=== PATIENT | female | born 1945 | race Caucasian/White ===

== ENCOUNTER 2021-12-21 10:33 | Emergency (ER) | payer MEDICARE ==
[~2021-12-21] VITALS: Ht 139.7 cm; Wt 93.9 kg
--- NOTE | 2021-12-21 10:40 | NUR ---
BIBS C/O CHETS PAIN ON AN DOFF [id number]. PT STATED THAT THE PAIN RADIATES TO BOTH ARMS AND BACK AND AT TIME SSAYS SHE CANNOT HEAR WHAT PEOPLE ARE SAYING. PT STATED SHE HAS NOT CARDIAC HISTORY. ATTCHED TO MONITOR, BLOOD PRESSURE ELEVATED, MD AWARE. PT IS A&OX4. IV ESTBLIHASED L AC 20G. LABS DRAWN AND COLLECTED AT BEDSIDE. WARM BLANKET PROVIDED FOR COMFORT. AWAITING MD AGUILAR.
[2021-12-21] MEDS ORDERED: LORAZEPAM 0.5 MG TABLET ONE (10:58)
[2021-12-21] MEDS ORDERED: ASPIRIN 325 MG TABLET ONE (10:58)
[2021-12-21] MEDS ORDERED: LORAZEPAM 0.5 MG TABLET PO ONE (11:00)
[2021-12-21] MEDS ORDERED: ASPIRIN 325 MG TABLET PO ONE (11:00)
[2021-12-21 11:09] LABS: BASOPHILS % (AUTO) 0.4 % (0.0-2.0); EOSINOPHILS % (AUTO) 0.2 % (0.0-6.0); HEMATOCRIT 30 % (33-45); HEMOGLOBIN 10.5 g/dL (11.5-14.8); LYMPHOCYTES # (AUTO) 2.6 K/uL (0.8-4.8); LYMPHOCYTES % (AUTO) 25.6 % (20.0-44.0); MEAN CORPUSCULAR HGB CONC 35 g/dl (31.0-36.0); MEAN CORPUSCULAR VOLUME 87 fL (82-100); MONOCYTES # (AUTO) 0.8 K/uL (0.1-1.30); MONOCYTES % (AUTO) 7.7 % (2.0-12.0); NEUTROPHILS # (AUTO) 6.6 K/uL (1.8-8.9); NEUTROPHILS % (AUTO) 66.1 % (43.0-81.0); PLATELET COUNT (AUTO) 235 K/uL (150-450); RED BLOOD CELL COUNT(AUTO) 3.44 MIL/uL (4.0-5.2)
[2021-12-21 11:29] LABS: CALCIUM, SERUM 8.8 mg/dL (8.5-10.1); CARBON DIOXIDE 23 mmol/L (21-32); CHLORIDE 107 mmol/L (98-107); CREATININE 0.7 mg/dL (0.6-1.3); GLUCOSE 107 mg/dL (74-106); POTASSIUM 3.5 mmol/L (3.5-5.1); SODIUM SERUM 138 mmol/L (136-145); UREA NITROGEN, BLOOD 25 mg/dL (7-18)
[2021-12-21 11:35] LABS: ALANINE AMINOTRANSFERASE 70 U/L (12-78); ALKALINE PHOSPHATASE 129 U/L (46-116); ASPARTATE AMINOTRANSFERASE 20 U/L (15-37); BILIRUBIN,DIRECT 0.1 mg/dL (0.0-0.2); BILIRUBIN,TOTAL 0.3 mg/dL (0.2-1.0); TOTAL PROTEIN, SERUM 6.6 g/dL (6.4-8.2)
--- NOTE | 2021-12-21 11:50 | NUR ---
RE-EVAL BY DR DAVILA,WANTS REPEAT TROP HS IN 1 HR
[2021-12-21] MEDS ORDERED: PROP20TA19 PO (12:37)
[2021-12-21] MEDS ORDERED: DILT180C87 PO (12:37)
[2021-12-21] MEDS ORDERED: ASPI-1420 PO (12:37)
[2021-12-21] MEDS ORDERED: DICL75TA5 PO (12:37)
[2021-12-21] MEDS ORDERED: FERR325T28 PO (12:37)
[2021-12-21] MEDS ORDERED: PRAM0.253 PO (12:38)
[2021-12-21 13:55] LABS: BILIRUBIN,URINE SMALL (NEGATIVE); COLOR,URINE YELLOW (YELLOW); LEUKOCYTE ESTERASE ,URINE NEGATIVE (NEGATIVE); NITRITE, URINE NEGATIVE (NEGATIVE); PROTEIN,URINE NEGATIVE (NEGATIVE); UGLUCOSE NEGATIVE (NEGATIVE); UROBILINOGEN,URINE 0.2 EU/dL (0.2)
--- NOTE | 2021-12-21 14:38 | NUR ---
IV removed. Catheter intact and site benign. Pressure and 4x4 applied to site. No bleeding noted.Patient discharged to home in stable condition. Written and verbal after care instructions given. Patient verbalizes understanding of instruction.
[2021-12-21 14:39] VITALS: BP 160/87
== END 2021-12-21 14:39 | disposition home or self-care (01) ==
LOC: ER 10:37
DX: F41.9 Anxiety disorder, unspecified (principal); R07.89 Other chest pain; I10 Essential (primary) hypertension; Z60.2 Problems related to living alone; Z79.899 Other long term (current) drug therapy
CPT/HCPCS: 36415; 71045-TC; 80048-TC; 80076-TC; 84484-TC; 85025-TC

== ENCOUNTER 2023-02-22 08:01 | Emergency (ER) | payer MEDICARE, OTHER ==
[~2023-02-22] VITALS: Ht 157.5 cm; Wt 72.6 kg
[~2023-02-22 08:01] MED LIST: ASPI-1420 PO; DICL75TA5 PO; DILT180C87 PO; FERR325T28 PO; PRAM0.253 PO; PROP20TA19 PO
--- NOTE | 2023-02-22 08:10 | NUR ---
BIB [facility] FROM HOME,CHEST PAIN SINCE YESTERDAY MORNING RATES TO HER LEFT ARM AND THROAT, ASA 324 MG AND NTG X 3 GIVEN BUT PROVIDED NO RELIEF. PT ATTACHED TO MONITOR VITALS ARE WITHIN NORMAL LIMITS, PER EMS HER SYSTOLIC WAS 200 UPON ARRIVAL AT HER HOUSE. PT HAS HX OF HYPERTENSION AND STATED SHE WAS SEEN LAST YEAR FOR CHEST PAIN AND WAS DISCHARGES. WARM BLANKET PROVIDED FOR COMFORT. AWAITING MD ORDERS.
--- NOTE | 2023-02-22 08:20 | NUR ---
IV ON L AC 18 PLACED BY EMS. SALINE LOCK APPLIED
[2023-02-22 08:27] LABS: BASOPHILS # (AUTO) 0.1 K/uL (0.0-0.2); BASOPHILS % (AUTO) 0.5 % (0.0-2.0); EOSINOPHILS % (AUTO) 0.1 % (0.0-6.0); HEMATOCRIT 37 % (33-45); HEMOGLOBIN 12.4 g/dL (11.5-14.8); LYMPHOCYTES # (AUTO) 1.9 K/uL (0.8-4.8); LYMPHOCYTES % (AUTO) 16.7 % (20.0-44.0); MEAN CORPUSCULAR HGB CONC 34 g/dl (31.0-36.0); MEAN CORPUSCULAR VOLUME 83 fL (82-100); MONOCYTES # (AUTO) 0.6 K/uL (0.1-1.30); MONOCYTES % (AUTO) 5.6 % (2.0-12.0); NEUTROPHILS # (AUTO) 8.9 K/uL (1.8-8.9); NEUTROPHILS % (AUTO) 77.1 % (43.0-81.0); PLATELET COUNT (AUTO) 217 K/uL (150-450); WHITE BLOOD COUNT (AUTO) 11.5 K/uL (4.3-11.0)
[2023-02-22] MEDS ORDERED: MORPHINE SULFATE INJ 2 MG/ML DISP.SYRIN IV ONE ×2 (08:30→12:00)
[2023-02-22] MEDS ORDERED: ONDANSETRON HCL/PF 4 MG/2 ML VIAL IVP ONE (08:30)
[2023-02-22] MEDS ORDERED: ONDANSETRON HCL/PF 4 MG/2 ML VIAL ONE (08:35)
[2023-02-22] MEDS ORDERED: MORPHINE SULFATE INJ 4 MG/ML DISP.SYRIN ONE ×2 (08:36→11:49)
[2023-02-22 08:43] LABS: CALCIUM, SERUM 9.5 mg/dL (8.5-10.1); CARBON DIOXIDE 20 mmol/L (21-32); CHLORIDE 103 mmol/L (98-107); CREATININE 0.8 mg/dL (0.6-1.3); GLUCOSE 152 mg/dL (74-106); POTASSIUM 3.3 mmol/L (3.5-5.1); SODIUM SERUM 137 mmol/L (136-145); UREA NITROGEN, BLOOD 15 mg/dL (7-18)
--- NOTE | 2023-02-22 09:03 | NUR ---
DR ROCA CALLED AND SPOKE WITH DR PHILIP
--- NOTE | 2023-02-22 09:08 | NUR ---
DR LEE CALLED AND WANTS PATIENT TX TO ER, DR BRAGG CALLED AT [facility] ER
--- NOTE | 2023-02-22 09:35 | NUR ---
NURSING FINE CRAFT ARTIST CALLED FOR TX
--- NOTE | 2023-02-22 09:37 | NUR ---
CALLED [facility] FOR TRANSPORT NO ALS UNITS AVAILABLE
--- NOTE | 2023-02-22 09:38 | NUR ---
CALLED [facility] FOR TRANSPORT ETA 90-120 MINS.
--- NOTE | 2023-02-22 09:44 | NUR ---
CALLED [facility] [phone] ETA 1400
--- NOTE | 2023-02-22 09:48 | NUR ---
CALLED [facility] FOR TRANSPORT NO UNITS AVAIALBLE PER [facility]
--- NOTE | 2023-02-22 11:36 | NUR ---
REPORT GIVEN TO CHARGE NURSE ILDEFONSO FOR [facility]
[2023-02-22 12:25] VITALS: BP 155/75; TEMP 98; O2SAT 98
--- NOTE | 2023-02-22 12:32 | NUR ---
[facility] ARRIVED TO TRANSPORT TO [facility], PT ABLE TO AMBULATE TO [facility].
== END 2023-02-22 12:34 | disposition short-term general hospital (02) ==
LOC: ER 08:04
DX: I21.4 Non-ST elevation (NSTEMI) myocardial infarction (principal); I10 Essential (primary) hypertension; Z60.2 Problems related to living alone
CPT/HCPCS: 99285; 96374; 71045; 96375; 93005 ×2; 96376; 85025; 80048; 36415; 84484; 83880; J2270 ×2; J2405